=== PATIENT | female | born 1955 | race Caucasian/White ===

== ENCOUNTER 2017-05-29 10:05 | Inpatient (IN) | payer OTHER ==
[2017-05-25 10:46] VITALS: BMI 27.8
[~2017-05-29 10:05] MED LIST: oxyCODONE HCL 10 MG SUSTAINED ACTING TABLET PO ONE
[2017-05-29] MEDS ORDERED: MIDAZOLAM HCL 2 MG/2 ML SINGLE DOSE VIAL ONE (11:21)
[2017-05-29] MEDS ORDERED: PROPOFOL 20 ML ONE ×5 (11:21→13:52)
[2017-05-29] MEDS ORDERED: THROMBIN (BOVINE) 5,000 UNIT VIAL TP ONE ×2 (11:21→14:20)
[2017-05-29] MEDS ORDERED: LIDOCAINE 1%/EPI 1:100000 (20 ML MULTI DOSE VIAL) ONE (11:21)
--- NOTE | 2017-05-29 11:42 | HP ---
History & Physical Update - History History: No Change - Physical Physical: No Change - Assessment Assessment: No Change - Plan Plan: No Change (PT taking cipro 2 x daily(for 3 days) for a UTI on pre- admission testing. She denies painful urination/blood in her urine.)
[2017-05-29] MEDS ORDERED: ceFAZolin SODIUM 1 GM VIAL ONE (12:33)
[2017-05-29] MEDS ORDERED: ONDANSETRON 4 MG/2 ML VIAL ONE (12:33)
[2017-05-29] MEDS ORDERED: DEXAMETHASONE SOD PHOSPHATE 4 MG/1 ML VIAL ONE (12:33)
[2017-05-29] MEDS ORDERED: LIDOCAINE 1%/EPI 1:100000 (50 ML MULTI DOSE VIAL) INF ONE (13:05)
[2017-05-29] MEDS ORDERED: KETOROLAC TROMETHAMINE 30 MG/1 ML VIAL ONE (14:30)
--- NOTE | 2017-05-29 15:01 | OP ---
Operative Note - Note: Operative Date: 05/29/17 Pre-Operative Diagnosis: cervical stenosis Operation: anterior fusion of c5/c6 and c6/c7 Surgeon: Ruel Quiroga Grease Worker: Kelly Diaz Anesthesiologist/DELIMER: Preston Rubin Anesthesia: General Specimens Removed: disc from c5/c6 and c6/c7 Estimated Blood Loss (mls): 30 Fluid Volume Replaced (mls): 1,800 Operative Report Dictated: Yes
--- NOTE | 2017-05-29 15:01 | SURG ---
Surgery Dramatic Art Teacher Note Dramatic Art Teacher: Kelly Diaz PA-C Date of Service: 05/29/17 Diagnosis: cervical stenosis Procedure: anterior fusion of C5/C6 and C6/C7 I was present for the entirety of the operative procedure. For further detail, please refer to operative report. Visit type - Case Type Case Type: Scheduled Admission - Emergency Emergency Visit: No - New patient This patient is new to me today: Yes Date on this admission: 05/29/17
[2017-05-29] MEDS ORDERED: oxyCODONE HCL 5 MG TABLET PO PRN ×2 (15:03→17:00)
[2017-05-29] MEDS ORDERED: ONDANSETRON 4 MG/2 ML VIAL IVPB PRN (15:08)
[2017-05-29] MEDS ORDERED: KETOROLAC TROMETHAMINE 30 MG/1 ML VIAL IVPUSH PRN (15:08)
[2017-05-29] MEDS ORDERED: LACTATED RINGERS SOLUTION 1,000 ML IV SCH ×2 (15:15)
[2017-05-29] MEDS ORDERED: diazePAM 5 MG TABLET ONE (15:26)
[2017-05-29] MEDS ORDERED: PROMETHAZINE HCL 25 MG/1 ML VIAL ONE ×2 (15:36→16:37)
[2017-05-29] MEDS: PROMETHAZINE HCL 25 MG/1 ML VIAL IVPUSH PRN ×2 (15:39→16:42)
[2017-05-29] MEDS: diazePAM 5 MG TABLET PO ONE ×2 (16:15→17:58)
[2017-05-29] MEDS ORDERED: ACETAMINOPHEN INJECTION 100 ML IVPB ONE (16:39)
[2017-05-29] MEDS ORDERED: ACETAMINOPHEN 1000 MG/100 ML VIAL (NON FORMULARY) IVPB ONE (16:44)
[2017-05-29] MEDS ORDERED: traMADol HCL 50 MG TABLET PO PRN (18:00)
[2017-05-29] MEDS: ACETAMINOPHEN 325 MG TABLET (FP) PO SCH (18:03)
[2017-05-29] MEDS: CEFAZOLIN 1 GM in DEXTROSE 5%-WATER - 50 ML IVPB SCH (20:15)
[2017-05-29] MEDS: oxyCODONE HCL 5 MG TABLET PO PRN (21:47)
[2017-05-29] MEDS: diazePAM 2 MG TABLET PO SCH (21:47)
[2017-05-30] MEDS: ACETAMINOPHEN 325 MG TABLET (FP) PO SCH ×3 (00:18→11:43)
[2017-05-30] MEDS: LEVOFLOXACIN 500 MG TABLET (FP) PO SCH ×2 (00:18→06:26)
[2017-05-30] MEDS: CEFAZOLIN 1 GM in DEXTROSE 5%-WATER - 50 ML IVPB SCH (04:10)
[2017-05-30] MEDS: diazePAM 2 MG TABLET PO SCH (06:26)
[2017-05-30 06:35] VITALS: BP 100/52; PULSE 66; TEMP 98
--- NOTE | 2017-05-30 06:56 | OP ---
DATE OF OPERATION: 05/29/2017 PREOPERATIVE DIAGNOSIS: Cervical stenosis at C5-C6, C6-C7. POSTOPERATIVE DIAGNOSIS: Cervical stenosis at C5-C6, C6-C7. PROCEDURE PERFORMED: 1. Anterior cervical discectomy and fusion at C5-C6. 2. Anterior cervical discectomy and fusion at C6-C7. 3. Placement of instrumentation of C5-C7. 4. Placement of prosthetic agent at C5-C6 and C6-C7. SURGEON: Ruel Quiroga MD POLICE CADET: WHIT Oneil ESTIMATED BLOOD LOSS: 60 mL. INTRAVENOUS FLUIDS: Per anesthesia. COMPLICATIONS: None. DISPOSITION: Patient was brought to the PACU in stable condition. INDICATIONS FOR SURGERY: The patient is a 62-year-old female who has been suffering from pain in her neck down her arms. She had gone through an exhaustive course of treatment for this which included medications, physical therapy, as well as injections. Unfortunately, her pain continued to persist despite all of this. At this point, the risks, benefits, and alternatives were discussed. Patient consented to surgery. OPERATIVE NOTE: Patient was brought to the operating room by anesthesia. After appropriate patient identification was performed, general anesthesia was administered. Appropriate anesthetic lines were placed. SCDs were placed on the patient. Neuromonitoring leads were attached. The patient was placed supine on the OR bed with the arms touching at the side. All areas of bony prominences were well-padded at this time. Her neck was extended to the point that she could tolerate in the preoperative holding area. A needle was taped onto her neck to adeel out the C5-C6 level. An x-ray was taken to confirm this site. The needle was removed and 10 mL of lidocaine with epinephrine was injected into her back at this time. Her back was prepped and draped in the sterile manner. At this point in time, a timeout was completed. A 2-inch incision was made on the left side of her neck. Dissection was carried down to the fascia of the platysma. The platysma was cut in line with the skin incision. Next, an interval between the sternocleidomastoid as well as strap muscle was developed. Next, the interval of the carotid sheath as well as trachea and esophagus was developed. The prevertebral fascia was elevated off with peanuts. A needle was placed into the C5-C6 disk and after taking x-ray to confirm it was correct, the needle was removed. A Kali pin was placed into the body of C5 and C7. Longus colli muscle was elevated off and retractor blades were placed in. A knife was used to incise the disk and distraction was applied. At this point, the microscope was brought in. A De La Garza was used to elevate the disk off. Disk was removed at C5-C6 and C6-C7. Using a series of pituitaries, Kerrison's, and curettes, the diskectomy was completed. The endplates were decorticated at this time. A size 6 cage filled with bone graft was placed into the C6-C7 and C5-C6. Screws were placed in to C5, C6, and C7. Kali pins were removed. AP and lateral x-rays confirmed the instrumentation to be in good position. Final tightening was performed. The platysma was closed with 2-0 Vicryl suture. Skin was closed 3-0 Monocryl suture. Dermabond was applied. Steri-Strips were applied. A sterile dressing was placed. Patient was placed supine on her OR bed, extubated in the OR, and brought to the PACU in stable condition. RUEL QUIROGA M.D. [id number]
[2017-05-30] MEDS ORDERED: LEVOTHYROXINE NA 88 MCG TABLET (FP) PO SCH (07:00)
--- NOTE | 2017-05-30 08:06 | DS ---
Physical Exam: SUBJECTIVE: Patient seen and examined she has complaints of pain this am but overnight was comfortable with oral pain meds. Tolerating clears without difficulty swallowing. OBJECTIVE: Vital Signs Temperature 98 F 05/30/17 06:00 Pulse Rate 66 05/30/17 06:00 Respiratory Rate 20 05/30/17 06:00 Blood Pressure 100/52 05/30/17 06:00 O2 Sat by Pulse Oximetry (%) 93 L 05/30/17 07:48 PHYSICAL EXAM GENERAL: The patient is awake, alert, and fully oriented, in no acute distress. NECK: Supple, dressing c/d/i, no evidence of hematoma or ecchymosis LUNGS: Breath sounds equal, clear to auscultation bilaterally. HEART: Regular rate and rhythm. EXTREMITIES: 2+ pulses, warm, well-perfused, no edema. SCDs in place and non- tender/swollen. NEUROLOGICAL:Normal speech, gait not observed. [employer] strength equal b/l, upper ext strength 5/5 b/l with 5/5 dorsi/plantar flexion b/l. SKIN: Warm, dry, normal turgor. LABS HOSPITAL COURSE: Date of Admission:05/29/17 Date of Discharge: 05/30/17 The patient was admitted to the Med-Surg Unit after an elective repair of their cervical stenosis C5-C6 and C6-C7. Now, s/p anterior cervical fusion of C5-C6 and C6-C7.The day of surgery, the patient ambulated the hallways with assistance. Narcotic and non-narcotic pain management control was achieved with an oral and IV approach. An xray was obtained and confirmed hardware placement at (level of ), no fractures or dislocations. Carine-operative IV ABX were administered. DVT prophylaxis was achieved with SCDs and early ambulation. The patient ambulated with Physical Therapy and no services were recommended upon discharge. Narcotic scripts and or muscle relaxants were checked with [facility] ATTENDANT prior to escibe. The discharge instructions and an oral pain management plan were reviewed with the patient. All questions answered. Above plan discussed with Dr. Quiroga and agreed. Minutes to complete discharge: 20 <MetKelly gamboa - Last Filed: 05/30/17 10:50> Physical Exam: SUBJECTIVE: Patient seen and examined OBJECTIVE: Vital Signs Temperature 98 F 05/30/17 06:00 Pulse Rate 66 05/30/17 06:00 Respiratory Rate 20 05/30/17 06:00 Blood Pressure 100/52 05/30/17 06:00 O2 Sat by Pulse Oximetry (%) 93 L 05/30/17 07:48 PHYSICAL EXAM GENERAL: The patient is awake, alert, and fully oriented, in no acute distress. HEAD: Normal with no signs of trauma. EYES: PERRL, extraocular movements intact, sclera anicteric, conjunctiva clear. ENT: Ears normal, nares patent, oropharynx clear without exudates, moist mucous membranes. NECK: Trachea midline, full range of motion, supple. LUNGS: Breath sounds equal, clear to auscultation bilaterally, no wheezes, no crackles, no accessory muscle use. HEART: Regular rate and rhythm, S1, S2 without murmur, rub or gallop. ABDOMEN: Soft, nontender, nondistended, normoactive bowel sounds, no guarding, no rebound, no hepatosplenomegaly, no masses. EXTREMITIES: 2+ pulses, warm, well-perfused, no edema. NEUROLOGICAL: Cranial nerves II through XII grossly intact. Normal speech, gait not observed. PSYCH: Normal mood, normal affect. SKIN: Warm, dry, normal turgor, no rashes or lesions noted. LABS HOSPITAL COURSE: Date of Admission:05/29/17 Date of Discharge: 06/01/17 The patient was admitted to the Med-Surg Unit after an elective repair of their C5-7 herniated discs. The day of surgery, the patient ambulated the hallways with assistance. Narcotic and non-narcotic pain management control was achieved with an oral and IV approach. POD #1, the surgical drain was removed fully intact and without incident. An xray was obtained and confirmed hardware placement at C5-6, C6-7, no fractures or dislocations. Carine-operative IV ABX were administered. DVT prophylaxis was achieved with SCDs and early ambulation. The patient ambulated with Physical Therapy and no services were recommended upon discharge. Narcotic scripts and or muscle relaxants were checked with [facility]END[facility] prior to escibe. The discharge instructions and an oral pain management plan were reviewed with the patient. All questions answered. Above plan discussed with Dr. Quiroga and agreed. <Ruel Quiroga - Last Filed: 06/01/17 15:08> Visit type - Case Type Case Type: Scheduled Admission - Emergency Emergency Visit: No - New patient This patient is new to me today: No - Critical Care Critical Care patient: No Total Critical Care Time: 30 Critical Care Statement: The care of this patient involved high complexity decision making to prevent further life threatening deterioration of the patient 's condition and/or to evaluate & treat vital organ system(s) failure or risk of failure. <Kelly Diaz - Last Filed: 05/30/17 10:50>
[2017-05-30] MEDS: oxyCODONE HCL 5 MG TABLET PO PRN (11:42)
--- NOTE | 2017-05-31 15:55 | PATH ---
Surgical Pathology Report Patient Name: DOE VACA [facility]. Rec. #: [id number] /Age/Gender: 1955 (Age: 62) / F Account: [id number] Location: [facility] Taken: 05/29/2017 Received: 05/30/2017 Reported: 05/31/2017 Physicians: Ruel Quiroga M.D. Specimen(s) Received DISC Clinical History Cervical stenosis Final Diagnosis ANTERIOR CERVICAL DISC C5/6-C6/7, EXCISION: FIBROCARTILAGINOUS TISSUE WITH DEGENERATIVE CHANGES. Electronically Signed Debra Garcia M.D. Gross Description Received in formalin labeled "disc C5/6-C6/7," is a 2.0 x 1.5 x 0.3 cm aggregate of ramos fragments of fibrocartilaginous tissue. The specimen is submitted in toto in one cassette. /05/30/201705/30/2017
== END 2017-05-30 13:30 | disposition home or self-care (01) | DRG 473 ==
LOC: FASU 10:05 → FM/S 15:08
PROVIDERS: ADMIT Orthopaedic Surgery Orthopaedic Surgery of the Spine; ATTEND Orthopaedic Surgery Orthopaedic Surgery of the Spine
PROC: 0RG20A0 Fusion of 2 or more Cervical Vertebral Joints with Interbody Fusion Device, Anterior Approach, Anterior Column, Open Approach (ICD-10-PCS; 2017-05-29)
PROC: 0RT30ZZ Resection of Cervical Vertebral Disc, Open Approach (ICD-10-PCS; principal; 2017-05-29 12:23)
DX: M48.02 Spinal stenosis, cervical region (principal)
CPT/HCPCS: 72050-TC; 76001-TC; 88304-TC; 94010; 94760; 97116-GP; 97161-GP